=== PATIENT | male | born 1970 | race Caucasian/White ===

== ENCOUNTER 2023-01-09 01:40 | Outpatient (CLI) | payer OTHER, SELFPAY ==
--- NOTE | 2023-01-09 | DI.MRI_ITS ---
Exam(s) MR LUMBAR SPINE WO EXAM: MR LUMBAR SPINE WO CLINICAL HISTORY: RT SCIATICA,M54.31. TECHNIQUE: Multiplanar multisequence MRI of the Lumbar spine was performed. COMPARISON: No exams were available for comparison FINDINGS: Bones: The last intervertebral disc space is designated the L5/S1 level for the numbering purpose of this examination. The vertebral body heights are well maintained. Alignment is satisfactory. The ma rrow signal characteristics are unremarkable. Cord: The conus tip ends at the T12 level. It is of normal size and signal intensity. T12-L1: No disc herniations or bulges are present. No central spinal canal or neural foraminal stenos is. L1-2: No disc herniations or bulges are present. No central spinal canal or neural foraminal stenosis . L2-3: Minimal disc bulging. No central spinal canal or neural foraminal stenosis. L3-4: Moderate concentric disc bulging. Mild facet degenerative changes and ligamentous hypertrophy. Mild bilateral neural foraminal narrowing.. No significant central canal stenosis. L4-5: Mild loss of disc height. Small endplate osteophytes. Severe circumferential disc bulging, gr eater posteriorly and laterally. Facet degenerative changes and ligamentous hypertrophy. Severe gabriella ateral neural foraminal narrowing, right greater than left.. Mild central canal stenosis. L5-S1: No disc herniations or bulges are present. Facet degenerative changes present right greater th an left. No central spinal canal or neural foraminal stenosis. The visualized SI joints and sacrum are well maintained. Soft tissues: The paraspinal soft tissues are unremarkable. IMPRESSION: Marked circumferential disc bulging and facet degenerative changes causing severe bilateral neural fo raminal narrowing, right greater than left and mild central canal stenosis at L4-5. DATA REPOSITORY:
== END 2023-01-09 02:00 ==
PROVIDERS: Visit Provider Physician Assistant Medical
DX: M54.31 Sciatica, right side (principal); M47.816 Spondylosis without myelopathy or radiculopathy, lumbar region; M48.061 Spinal stenosis, lumbar region without neurogenic claudication; M51.36 Other intervertebral disc degeneration, lumbar region
CPT/HCPCS: 72148